=== PATIENT | male | born 1980 | race Caucasian/White ===

== ENCOUNTER 2019-07-12 17:30 | Observation (INO) ==
[2019-07-12] MEDS ORDERED: ASPIRIN PO ONE (17:38)
[2019-07-12 18:00] LABS: BASO# 0.03 X1000 (0.0-0.2); BASO% 0.4 % (0.0-0.8); EOS% 2.5 % (0.0-10.0); HEMATOCRIT 46.7 % (42.0-52.0); HEMOGLOBIN 16.1 g/dL (14.0-18.0); IMM GRAN# 0.05 X1000 (0.0-0.04); IMM GRAN% 0.6 % (0.0-0.5); LYMPH# 2.69 X1000 (1.2-3.4); LYMPH% 33.3 % (20.5-51.1); MCH 31.2 PG (27-31); MCHC 34.5 g/dL (33-37); MCV 90.5 FL (81-99); MONO# 0.86 X1000 (0.11-0.59); MONO% 10.6 % (1.7-9.3); MPV 9.1 FL (7.4-10.4); NEUT# 4.26 X1000 (1.4-6.5); NEUT% 52.6 % (42.2-75.2); PLT 269 X1000 (130-400); RBC 5.16 XMIL (4.7-6.1); RDW 12.4 % (11.5-14.5); WBC 8.09 X1000 (4.8-10.8)
[2019-07-12] MEDS ORDERED: LOPRESSOR 10 MG in NS 50 ML IV ONE ×3 (18:04→18:14)
--- NOTE | 2019-07-12 18:13 | Diag Imaging Result Doc PS360 ---
EXAM: CHEST-2 VIEWS - 07/12/2019 HISTORY: palpitations TECHNIQUE: Chest two views COMPARISON: 06/19/2017 FINDINGS: Heart size is normal. The lungs appear clear. There is no pleural effusion or pneumothorax identified. There are chronic deformities of anterior left first and second ribs similar to prior. IMPRESSION: No evidence of acute disease. Electronically signed by Gregg Koehler 07/12/2019 6:10 PM
[2019-07-12 18:17] LABS: INR 0.93; PROTIME 12.9 Seconds (11.0-16.0)
[2019-07-12 18:18] LABS: PTT 30.2 Seconds (22.3-41.8)
--- NOTE | 2019-07-12 18:21 | EKG Report ---
Test Performed on : 07/12/2019 5:57:18 PM Test Reason : palpitations Blood Pressure : / mmHG Vent. Rate : 106 BPM Atrial Rate : 106 BPM P-R Int : 178 ms QRS Dur : 094 ms QT Int : 374 ms P-R-T Axes : 039 013 015 degrees QTc Int : 496 ms Sinus tachycardia. with premature supraventricular complexes. Otherwise normal ECG When compared with ECG of 19-JUN-2017 08:13, premature supraventricular complexes. are now present Unconfirmed Result
[2019-07-12] MEDS ORDERED: LOPRESSOR IV ONE (18:30)
--- NOTE | 2019-07-12 18:58 | PROVIDER DOCUMENTATION ---
This chart was entered by Sandra Campbell Scribe, acting as scribe for Austen Dalal MD. HPI-Cardiac General - General Source: patient - History of Present Illness-Cardiac Location: reports: central Quality of Pain: reports: other (spasm) Severity in ED: mild Onset/Duration: just prior to arrival Timing: still present Context/Activities at Onset: reports: none Modifying Factors: improves with: nothing Palpitation Quality: fast/pounding heart beat History of arrythmia: reports: none Recent use of:: reports: no stimulants Nitro Today/Relief: reports: no nitro taken today Aspirin Treatment Today: reports: no aspirin today Prior Chest Pain/Cardiac Workup: reports: no prior chest pain Associated Symptoms: reports: shortness of breath Similar Symptoms Previously?: No Recently Seen Here or By Another Healthcare Provider: No <Austen Dalal - Last Filed: 07/12/19 18:57> <Erich Oliver - Last Filed: 07/13/19 01:45 CDT> - General Chief Complaint: Palpitations Stated Complaint: PALPITATIONS / HIGH BP Time Seen by Provider: 07/12/19 17:45 Allergies/Adverse Reactions: Patient Allergies Allergy/AdvReac Type Severity Reaction Status Date / Time levofloxacin [From Levaquin] Allergy SWELLING Verified 07/12/19 17:43 Home Medications: Home Medication List Medication Instructions Recorded Confirmed Last Taken Type Aspirin 81 mg PO DAILY 06/19/17 07/12/19 06/18/17 History Carvedilol [Coreg] 12.5 mg PO BID 07/12/19 07/12/19 Unknown History Losartan/Hctz [Hyzaar 100/12.5 mg 1 tab PO DAILY 07/12/19 07/12/19 Unknown History Tab] - History of Present Illness-Cardiac Nature of Presenting Problem: Pt is a 39 yom who presents to the ED with a CC of palpitation. Pt states that he was sitting in his recliner when the pain began. Pt states that the palpitation increased when he got in the shower. Pt report shortness of breath. Pt reports a hx of HTN. Pt denies fever, nausea, and any other complaints. (Austen Dalal) Review of Systems - Adult - REVIEW OF SYSTEMS - ADULT Constitutional: reports: see HPI Eyes: reports: no symptoms reported Ears, Nose, Mouth & Throat: reports: no symptoms reported Cardiovascular: reports: see HPI, palpitations Respiratory: reports: no symptoms reported Gastrointestinal: reports: no symptoms reported Genitourinary: reports: no symptoms reported Musculoskeletal: reports: no symptoms reported Integumentary: reports: no symptoms reported Neurological: reports: no symptoms reported Psychiatric: reports: no symptoms reported Endocrine: reports: no symptoms reported Hematologic/Lymphatic: reports: no symptoms reported Allergic/Immunologic: reports: no symptoms reported All Other Systems: Reviewed and Negative <KatlinAusten - Last Filed: 07/12/19 18:57> Past History - Adult - PAST MEDICAL HISTORY-ADULT Review of Records: reports: Old Records Reviewed, Nursing Assessment Review, Med ications Reviewed, Social history reviewed & non-contributory. Major Childhood Illnesses: reports: denies history Cardiovascular: reports: HTN Respiratory: reports: denies history Gastrointestinal: reports: denies history Obstetrical/Gynecological: reports: denies history Genitourinary: reports: denies history Musculoskeletal: reports: denies history Neurological: reports: denies history Endocrine/Immune: reports: denies history Other Conditions: reports: denies history - IMMUNIZATION STATUS Childhood Immunizations: See Nurse Assessment Flu Vaccine: See Nurse Assessment - FAMILY HISTORY Family History: reviewed, not pertinent - SOCIAL HISTORY Smoking: non-smoker Alcohol Use Frequency: every day Living Situation: family <KatlinAusten Grazyna - Last Filed: 07/12/19 18:57> Physical Exam-General - PHYSICAL EXAM-ADULT Initial Vital Signs Reviewed: Yes - CONSTITUTIONAL General Appearance: alert, no apparent distress - EYES Eyes: PERRL/EOMI, pink conjunctivae - HEAD, EARS, NOSE, MOUTH & THROAT HENMT: normocephalic/atraumatic, moist mucous membranes - NECK Neck: non-tender, full range of motion, supple - RESPIRATORY Respiratory: chest non-tender, lungs clear, normal breath sounds. negative: crackles, wheezing - CARDIOVASCULAR Cardiovascular: irregularly irregular (rapid). negative: regular rate, rhythm - GASTROINTESTINAL (ABDOMEN) Abdominal Exam: normal bowel sounds, non tender, soft. negative: guarding, rebound - MUSCULOSKELETAL Back Exam: normal inspection Extremity: normal range of motion, non-tender, normal inspection - SKIN Integumentary: normal color, normal turgor, warm/dry. negative: ecchymosis, erythema - NEUROLOGIC Neurologic: grossly normal - PSYCHIATRIC Psych/Mental Status: normal mood/affect, normal thought content, normal thought process, oriented x 3 <Austen Dalal - Last Filed: 07/12/19 18:57> - HEART Score HEART Score: History: Slightly Suspicious HEART Score: ECG: Non-Specific Repolarization Disturbance/LBBB/PM HEART Score: Age: < or = 45 Years HEART Score: Risk Factors for Atherosclerotic Disease: 1 or 2 Risk Factors HEART Score: Troponin: < or = Normal Limit Total HEART Score:: 2 <Erich Oliver - Last Filed: 07/13/19 01:45 CDT> Progress - PLAN OF CARE/RESULTS Result Diagrams: 07/12/19 17:52 - EKG 1 Time of EKG reading by physician:: 17:53 EKG Read and Signed by:: Austen Dalal EKG Interpretation (*Must complete 3 of following elements*): Abnormal (Cannot rule out Inferior infarct, age undetermined) Rate: 85 Rhythm: NSR 2 Time of EKG reading by physician:: 17:57 EKG Read and Signed by:: Austen Dalal ([facility]) EKG Interpretation (*Must complete 3 of following elements*): Abnormal Rate: 106 Rhythm: Sinus tachycardia with premature supraventricular complexes [place]: normal QRS: normal [place] Interval: normal ST Wave: normal - XRAY 1 XRAY: Left XRAY Study: Chest Impression: Normal (EXAM: CHEST-2 VIEWS - 07/12/2019 HISTORY: palpitations TECHNIQUE: Chest two views COMPARISON: 06/19/2017 FINDINGS: Heart size is normal. The lungs appear clear. There is no pleural effusion or pneumothorax identified. There are chronic deformities of anterior left first and second ribs similar to prior. IMPRESSION: No evidence of acute disease. Electronically signed by Gregg Koehler 07/12/2019 6:10 PM 07/12/19 1810 Interpreting Physician: Gregg Koehler MD Dictated Date/Time: 07/12/19 1809 cc: Austen Dalal MD; Doctor,Unassigned) <Austen Dalal - Last Filed: 07/12/19 18:57> - PLAN OF CARE/RESULTS Result Diagrams: 07/12/19 17:52 07/12/19 17:52 - REASSESSMENT Reassessment #1 Time Reassessed: 19:45 Status: improving Reassessment Comment: continues to have episodes of tachycardia, will give additional Carvedilol - CONSULTS/PCP/HOSPITALIST Notification #1 *Consult/PCP/Hospitalist*: Dr. Barber Time Discussed: 18:00 Reason/Comments: recommends 10mg IV Lopressor and wait 1 hour #2 Consult: Dr. Dalal Time Discussed: 19:00 Consult Disposition: Admit <Erich Oliver - Last Filed: 07/13/19 01:45 CDT> - PLAN OF CARE/RESULTS Progress/Plan/Lab Results: Vital Signs - 8 hr 07/12/19 18:32 07/12/19 18:53 07/12/19 19:49 Temperature 98.0 F Pulse Rate 62 59 L 61 Respiratory Rate 14 12 Blood Pressure 152/105 135/105 O2 Sat by Pulse Oximetry 98 99 07/12/19 19:59 07/12/19 20:00 Temperature 97.7 F Pulse Rate 81 62 Respiratory Rate 26 H 18 Blood Pressure 148/90 119/60 O2 Sat by Pulse Oximetry 98 100 Laboratory Results - last 24 hr 07/12/19 07/12/19 07/12/19 17:25 17:52 17:52 WBC 8.09 RBC 5.16 Hgb 16.1 Hct 46.7 MCV 90.5 MCH 31.2 H MCHC 34.5 RDW Std Deviation 12.4 Plt Count 269 MPV 9.1 Immature Gran % (Auto) 0.6 H Neut % (Auto) 52.6 Lymph % (Auto) 33.3 Mobile % (Auto) 10.6 H Eos % (Auto) 2.5 Baso % (Auto) 0.4 Immature Gran # (Auto) 0.05 H Neut # (Auto) 4.26 Lymph # (Auto) 2.69 Mobile # (Auto) 0.86 H Eos # (Auto) 0.20 Baso # (Auto) 0.03 PT INR PTT (Actin FS) Sodium 137 Potassium 3.9 Chloride 101 Carbon Dioxide 24 L Anion Gap Not Reportable BUN 9 Creatinine 1.0 Estimated GFR/1.73 m2 > 60 BUN/Creatinine Ratio 9 Glucose 105 H Calculated Osmolality 210 Calcium 10.2 Total Bilirubin 0.60 AST 31 ALT 62 H Alkaline Phosphatase 66 Creatine Kinase 70 Troponin T [id number] Pept Total Protein 7.4 Albumin 4.8 Globulin 3.0 Albumin/Globulin Ratio 2.0 TSH 1.59 07/12/19 07/12/19 07/12/19 17:52 17:52 17:52 WBC RBC Hgb Hct MCV MCH MCHC RDW Std Deviation Plt Count MPV Immature Gran % (Auto) Neut % (Auto) Lymph % (Auto) [place] % (Auto) Eos % (Auto) Baso % (Auto) Immature Gran # (Auto) Neut # (Auto) Lymph # (Auto) Mobile # (Auto) Eos # (Auto) Baso # (Auto) PT 12.9 INR 0.93 PTT (Actin FS) 30.2 Sodium Potassium Chloride Carbon Dioxide Anion Gap BUN Creatinine Estimated GFR/1.73 m2 BUN/Creatinine Ratio Glucose Calculated Osmolality Calcium Total Bilirubin AST ALT Alkaline Phosphatase Creatine Kinase Troponin T < 0.010 Jzs-[id number]-Oxfswdcrivd Pept 17 Total Protein Albumin Globulin Albumin/Globulin Ratio TSH Orders Category Date Time Status Admit - [facility] Routine AdmDCTranf 07/12/19 19:48 Active Cardiac Monitoring DIRECTED Care 07/12/19 17:39 Completed Oxygen Therapy- ED Nursing DIRECTED Care 07/12/19 17:39 Completed Resuscitation Status Routine Care 07/12/19 19:48 Ordered Saline Loc NOW Care 07/12/19 17:39 Completed Vital Signs Order Q 4-HR ASSESS Care 07/12/19 19:48 Active Z-Document. for Tele Applied ORDERED Care 07/12/19 19:49 Completed Heart Healthy Diet Diet 07/12/19 19:50 Active CHEST-2 VIEWS [RAD] Stat Exams 07/12/19 17:39 Completed CBC WITH ELECTRONIC DIFF [HEME] Stat Lab 07/12/19 17:52 Completed CK PROFILE [SP CHEM] Stat Lab 07/12/19 17:52 Completed COMPREHENSIVE METABOLIC PANEL [CHEM] Stat Lab 07/12/19 17:52 Completed PRO B-NATRIURETIC PEPTIDE Stat Lab 07/12/19 17:52 Completed PROTIME WITH INR [COAG] Stat Lab 07/12/19 17:52 Completed PTT [COAG] Stat Lab 07/12/19 17:52 Completed TROPONIN T Stat Lab 07/12/19 17:52 Completed TSH Stat Lab 07/12/19 17:25 Completed Aspirin Med 07/12/19 17:38 Discontinued 325 mg PO NOW ONE Carvedilol [Coreg] Med 07/12/19 19:44 Discontinued 12.5 mg PO NOW ONE Carvedilol [Coreg] Med 07/13/19 09:00 Active 25 mg PO BID Metoprolol [Lopressor] Med 07/12/19 18:30 Discontinued 10 mg IV NOW ONE Metoprolol [Lopressor] 10 mg Med 07/12/19 18:04 Discontinued 0.9% Sodium Chloride Inj [Ns] 50 ml IV NOW Metoprolol [Lopressor] 10 mg Med 07/12/19 18:11 Discontinued 0.9% Sodium Chloride Inj [Ns] 50 ml IV NOW Oxygen Device Routine Oth 07/12/19 19:50 Active Telemetry [OM.EQ] Routine Oth 07/12/19 19:48 Active EKG [EKG] Stat Ther 07/12/19 17:39 Draft Transfer/Admit Order [TRANSFER] Routine Transfer 07/12/19 20:06 Completed Departure <Austen Dalal - Last Filed: 07/12/19 18:57> - Departure Date of Disposition Decision: 07/12/19 Time of Disposition Decision: 19:45 Certified Medical Emergency: Emergent - Critical Care Note This patient required my direct & personal management of CC.: No <Erich Oliver - Last Filed: 07/13/19 01:45 CDT> - Departure DIAGNOSIS: Paroxysmal atrial fibrillation with RVR Disposition: ADMITTED INPATIENT 09 Condition: Stable Attestation - Physician/ LUCAS Attestation Patient care was provided by Advanced Practice Provider:: No The physician spent face to face time with patient:: Yes Advanced Practice Provider documentation review:: Supervising physician onsite and consulted in the evaluation and care of this patient. The physician did have a face to face encounter with the patient. <Erich Oliver - Last Filed: 07/13/19 01:45 CDT> This chart was documented by the indicated scribe, (Sandra Campbell Scribe) and accurately reflects the services I performed and decisions made by me, Austen Dalal MD, as attested by the provider's signature.
[2019-07-12 19:03] LABS: CHLORIDE 101 mmol/L (98-107)
[2019-07-12 19:22] LABS: ALBUMIN 4.8 g/dL (3.5-5.0); ALKALINE PHOSPHATASE 66 U/L (32-122); BUN 9 mg/dL (8-22); CALCIUM 10.2 mg/dL (8.8-10.2); CK PROFILE 70 U/L (24-204); COSMO 210; ESTIMATED GFR > 60; GLUCOSE 105 mg/dL (70-104); GOT 31 U/L (10-34); GPT 62 U/L (10-44); TCO2 24 mmol/L (25-35); TOTAL PROTEIN 7.4 g/dL (6.3-8.3)
[2019-07-12 19:23] LABS: POTASSIUM 3.9 mmol/L (3.5-5.1); SODIUM 137 mmol/L (136-145)
[2019-07-12] MEDS ORDERED: COREG PO ONE (19:44)
[2019-07-13] MEDS ORDERED: COREG PO SCH (09:00)
[2019-07-13] MEDS ORDERED: ASPIRIN EC PO SCH (09:00)
[2019-07-13 12:23] VITALS: BP 126/89
[2019-07-13 13:59] LABS: AGAP 12; BUN 11 mg/dL (8-22); CALCIUM 10.1 mg/dL (8.8-10.2); CHLORIDE 103 mmol/L (98-107); COSMO 276; ESTIMATED GFR > 60; GLUCOSE 109 mg/dL (70-104); POTASSIUM 4.3 mmol/L (3.5-5.1); SODIUM 138 mmol/L (136-145); TCO2 24 mmol/L (25-35)
--- NOTE | 2019-07-13 14:22 | CARDIOLOGY CONSULTATION ---
DATE: 07/13/2019 CONSULTATION REQUESTED BY: Dr. Dalal, [facility]. REASON FOR CONSULTATION: Patient presenting with palpitations, atrial fibrillation. HISTORY: Mr. Sanchez is a pleasant 39-year-old male who presented yesterday to the emergency room I believe around 5:30 p.m. The patient was getting ready to go to work and he said that he noted recurrent palpitations. He said that the day prior to coming to the ER, he had noted some palpitations which were relatively uncommon for him. He tracked this back to 1st episode about 4 years ago and then another episode about a year ago, always short lasting and not truly confirmed by EKG. This time the palpitations were persistent. He felt slightly dizzy and slightly short of breath and upon presentation, an EKG reveals atrial fibrillation, rapid response. They did 1 troponin, 1 ProBNP level, both normal. BUN, creatinine normal, sodium, potassium were normal. They gave him metoprolol and increased his carvedilol dosage and it seems like that has helped to normalize his rhythm. Now he is in sinus rhythm and he is feeling better. He denies having chest pains. Denies syncope. Denies swelling. PAST MEDICAL HISTORY: Positive for again the prior episodes of palpitations. Back in 2014, the patient received a nuclear MPI study May 18 which showed normal response both from EKG and perfusion images. Ejection fraction was normal. Surgical history is negative. The patient is being treated presently for hypertension. He says that his blood pressure has been running high. SOCIAL HISTORY: He is to his for I believe 18 years or so. They have 3 children. The patient works at a [employer] on a swing shift. 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 He has never been a smoker or drinker. HOME MEDICATIONS: At this time include aspirin 81 daily, carvedilol 12.5 twice a day, losartan hydrochlorothiazide 100/12.5 daily. FAMILY HISTORY: Father suffered heart attacks. The patient says that he quit smoking about 18 years ago. REVIEW OF SYSTEMS: Really unremarkable. The patient is in good physical shape. He is able to walk without limitations. Has no issues except that his has noted that he snores at night and his sleep is very restless. He does not have good quality sleep. PHYSICAL EXAMINATION: Vital signs: Blood pressure is 126/89, temperature 97.4 degrees, pulse 65, respirations 18. Patient is awake, alert, oriented, in no distress. HEENT: Unremarkable. Chest: Clear to auscultation and percussion. Heart: Sounds are regular, rhythmic. No gallop or murmur. Abdomen: Nontender, soft. No mass, no hepatomegaly. Extremities: Show good pulses. No peripheral edema. Neurological: Nonfocal. Moves 4 extremities. LABORATORY: Blood work as I said nothing really stands out as clearly abnormal. His chest x-ray at presentation shows clear lungs. IMPRESSION: 1. Patient who presents with symptomatic palpitations, paroxysmal atrial fibrillation, rapid response. 2. History of hypertension. 3. Suspected sleep apnea syndrome. 4. Overweight. 5. Family history of ischemic heart disease. RECOMMENDATION: At this time, I would suggest to continue carvedilol at 25 mg twice a day plus losartan hydrochlorothiazide. I would suggest to review the echocardiogram prior to making a decision about discharging him home. If his echocardiogram is normal, he can be discharged and we will arrange for a 30-day loop recorder monitor as well as a treadmill exercise MPI for completion of this evaluation. We may want to consider referring the patient for sleep studies. I am going to ask for a direct LDL level to make sure that he is not significantly hyperlipidemic. Further advice will be forthcoming. We will arrange for an office visit down the road. cc: MD Austen Carrillo MD
--- NOTE | 2019-07-13 18:55 | ECHO REPORT ---
ORDER DATE: 07/13/2019 INTERPRETING PHYSICIAN: Dr. Jc CLINICAL INDICATIONS: Atrial fibrillation, paroxysmal. M-MODE MEASUREMENTS: Left ventricle end diastole: 3.9 cm. Left ventricle end systole: 2.8 cm. Posterior wall: 1.1 cm. Interventricular septum: 1.1 cm. Left atrium: 3.7 cm. Aortic root: 3.0 cm. SUMMARY OF 2-DIMENSIONAL IMAGIN. Left ventricular function is excellent. Ejection fraction is estimated at 73%. There is no wall motion abnormality. 2. The right ventricle appears to be normal. 3. The aortic valve looks morphologically normal. Color flow mapping unremarkable. 4. The pulmonic valve looks morphologically normal. Color flow mapping unremarkable. 5. The mitral valve looks normal. Color flow mapping unremarkable. 6. Pulsed wave Doppler of mitral inflow shows minimal reversal of the E and the A ratio. Ratio is 0.8. 7. Tissue Doppler of septal and lateral mitral annulus averages 7 cm. 8. Pulmonary venous flow is normal. There is no diastolic dysfunction. 9. The tricuspid valve looks normal. Color flow mapping unremarkable. 10.Pulmonary pressure cannot be fully calculated because of minimal jet of regurgitation. The inferior vena cava is not dilated. 11.There is no pericardial effusion, mass, and no thrombus. CONCLUSIONS: In summary, this echocardiographic study appears to be well within normal limits. Clinical correlation is recommended. cc: MD Austen Carrillo MD
== END 2019-07-13 17:26 | disposition home or self-care (01) ==
LOC: P.ED 17:30 → INTOOBSV 21:33 → P.MEDSURG 21:33 → SUPCPDRO 21:33 → SUATTDRO 21:33
PROVIDERS: ADMIT Internal Medicine; ATTEND Internal Medicine